=== PATIENT | female | born 1985 | race Caucasian/White ===

== ENCOUNTER 2019-03-17 17:10 | Emergency (ER) | payer OTHER ==
[2019-03-17 18:57] LABS: #Basophils 0.1 thou/uL (0.0-0.2); #Eosinphils 0.1 thou/uL (0.0-0.7); #Lymphocytes 2.6 thou/uL (1.20-3.40); #Monocytes 0.5 thou/uL (0.11-0.59); #Neutrophils 3.8 thou/uL (1.40-6.50); %Basophils 0.7 % (0.0-1.0); %Eosinophils 2.1 % (0.0-10.0); %Lymphocytes 35.9 % (21.0-51.0); %Monocytes 7.5 % (0.0-10.0); %Neutrophils 53.8 % (42.0-75.0); Hemoglobin 14.6 g/dL (12.0-16.0); Mean Corpuscular HGB CONC 33.8 g/dL (32.0-36.0); Mean Corpuscular Hemoglobin 31.4 pg (27.0-31.0); Mean Corpuscular Volume 92.9 fL (78.0-98.0); Mean Platelet Volume 8.9 fL (7.4-10.4); Platelet Count 212 thou/uL (130-400); RBC Distribution Width 11.6 % (11.5-14.5); Red Blood Cell (RBC) Count 4.66 mill/uL (4.20-5.40); White Blood Cell (WBC) Count 7.1 thou/uL (4.8-10.8)
--- NOTE | 2019-03-17 19:29 | ULT ---
PELVIC ULTRASOUND: HISTORY: Vaginal bleeding and pain. TECHNIQUE: Real-time imaging of the pelvis was obtained transabdominally, as well as with an endovaginal probe. FINDINGS: This shows a uterus measures 3.7 x 4.5 x 7.8 cm. There is somewhat asymmetric echogenicity along the right lateral margin of the uterus but it is not a definite discrete fibroid. The endometrium measure s in the 4 to 5 mm range. The right ovary is difficult to visualize due to gas. The left ovary shows several small follicles. N o evidence of any significant free fluid. On Doppler evaluation with spectral analysis, normal flow is shown to the left ovary. Due to the posi tion of the right ovary, it is difficult to show flow due to the bowel gas in this region. IMPRESSION: Somewhat heterogeneous appearing uterus but not a definite focal discrete fibroid. It may be helpful to obtain MRI if indicated. POS: [facility]EL
== END 2019-03-17 20:05 | disposition home or self-care (01) ==
LOC: ERS 17:10
DX: N93.9 Abnormal uterine and vaginal bleeding, unspecified (principal); D25.9 Leiomyoma of uterus, unspecified; F41.9 Anxiety disorder, unspecified
CPT/HCPCS: 36415; 76856; 84702; 85025